=== PATIENT | female | born 2005 | race Caucasian/White ===

== ENCOUNTER 2025-01-31 14:19 | Emergency (ER) | payer OTHER, SELFPAY ==
[2025-01-31 14:20] VITALS: BP 112/73; PULSE 89; RESP 16; TEMP 36.8; O2SAT 100; BMI 21.6
--- NOTE | 2025-01-31 15:42 | EX.ED.DYSGE1 ---
HPI History of Present Illness Chief Complaint: Cellulitis Informant: patient Onset/Context/Timing Onset: Days Context: Gradual Onset Timing: Continuous Location: Left lateral leg Worsened by: Nothing Relieved by: Nothing Narrative Narrative: Patient presents with abscess to her left leg that has been getting worse over the past few days. Patient does not remember any specific trauma. Patient thinks she may have been bitten by an insect. Patient has been taking Keflex. Patient has been using warm compresses. Patient states the swelling is getting worse. Patient denies any fevers or chills. Patient denies any paresthesias or weakness. PFSH PFSH no medical history Allergy/AdvReac Type Severity Reaction Status Date / Time No Known Allergies Allergy Verified 01/31/25 14:19 Surgical History (Updated 01/31/25 @ 15:[address] Ulises Gutierrez, DO) History of repair of ACL ROS ROS ED Constitutional Constitutional ED: Denies chills or fever(s) Cardiovascular Cardiovascular: Denies chest pain Respiratory/Chest Respiratory/Chest: Denies dyspnea Gastrointestinal Gastrointestinal: Denies nausea or vomiting Integumentary Reports abscess and rash Neurologic Neurologic: Denies weakness EXAM Physical Exam Const Vital Signs: 01/31/25 14:20 Temperature 98.2 F Temperature Source Oral Pulse Rate 89 Respiratory Rate 16 Blood Pressure 112/73 Blood Pressure Mean 86 Pulse Ox 100 Oxygen Delivery Method Room Air Positive well nourished and well developed Constitutional Narrative: BMI is 21.6. General Appearance ED: well developed and NAD HEENT Reports moist mucous membranes Neck supple Extremity Extremity Narrative: There is tenderness, edema, and erythema over the lateral aspect of the left leg. There is an area of fluctuance over this area. There is no active discharge or drainage. There are 2 other areas over the anterior and medial aspects of the left lower leg. There is no fluctuance over these areas. There is some erythema around these areas. There is full range of motion of the left lower extremity. There are no sensory deficits noted. There is good pedal pulse noted. Neuro oriented x3, CN's II-XII intact bilaterally and no sensory deficits noted Sensorium / Orientation: alert Motor Exam: strength 5/5 throughout Psych mental status grossly normal MDM MDM MDM Narrative Medical decision making narrative: Patient was advised that this would need to be opened and drained. Verbal consent was obtained. The area was cleaned and anesthetized with 1% lidocaine locally. The area was opened with an 11 blade scalpel. There is a large amount of purulent drainage noted. Curved hemostats were used to break up loculations. The abscess was irrigated with normal saline. Patient tolerated procedure well. The wound was left open. Patient was instructed to continue using warm compresses. Patient was instructed to continue her Keflex as previously prescribed. Patient was instructed to keep the wound clean and dry. Patient was instructed to follow-up with her primary care physician in 5 to 7 days. Patient understood and was agreeable with the plan. All questions were answered. Procedures Other Procedures Procedure(s): The area was cleaned with chlorhexidine prep. The area was anesthetized with 1% plain lidocaine locally. A small linear incision was made using an 11 blade scalpel. A large amount of purulent drainage was expressed. The wound was left open. Bacitracin dressing was applied. Patient tolerated the procedure well. Patient was instructed to use warm compresses. Patient was instructed to follow-up with her primary care physician in 5 to 7 days. Patient understood and was agreeable with the plan. All questions were answered. Discharge Plan Triage Chief Complaint: Cellulitis ED Provider: Ulises Gutierrez Dx/Rx/DC Orders Clinical Impression: Abscess of left lower leg, Cellulitis of left leg Instructions: ED Abscess Incision And Drainage Print Language: [place]ian Disposition Disposition: Home, Self Care
[2025-01-31] MEDS: Lidocaine 1% (20 ml mdv) 20 ML Vial INFILT (16:04)
[2025-01-31 16:08] VITALS: BP 102/74; PULSE 78; RESP 14; TEMP 37.2; O2SAT 99
== END 2025-01-31 16:10 | disposition home or self-care (01) ==
LOC: ED 15:57
PROVIDERS: Emergency Provider Emergency Medicine; Visit Provider Emergency Medicine
DX: L02.416 Cutaneous abscess of left lower limb (principal); L03.116 Cellulitis of left lower limb
CPT/HCPCS: 10060; 99282